=== PATIENT | female | born 1980 | race Caucasian/White ===

== ENCOUNTER 2021-11-27 14:47 | Outpatient (CLI) | payer OTHER, SELFPAY ==
--- NOTE | ~2021-11-27 | US_ITS ---
EXAMINATION: US pelvic complete w TV DATE: 11/27/2021 15:59 INDICATION: Excessive and frequent menstruation TECHNIQUE: Multiple transabdominal and endovaginal sonographic images of the pelvis were obtained. COMPARISON: None. FINDINGS: The uterus measures 9.1 x 5.2 x 6.5 cm. The endometrial complex measures 8 mm. There is a 2 .9 cm isoechoic mass adjacent to the uterine fundus which has the appearance of a pedunculated fibroi d. The right ovary is not visualized however no right adnexal abnormality is seen. The left ovary rafy sures 8.3 x 4.6 x 4.5 cm and contains two simple cysts which measure 3.9 and 3.7 cm. There is normal vascular flow in the left ovary. There is no free fluid in the pelvis. IMPRESSION: 1. No sonographic correlate for the patient's symptoms. Reviewed, dictated and finalized at location B.
== END 2021-11-27 14:48 | disposition home or self-care (01) ==
PROVIDERS: PCP Family Medicine; Visit Provider Physician Assistant
DX: N92.1 Excessive and frequent menstruation with irregular cycle (principal)
CPT/HCPCS: 76830; 76856

== ENCOUNTER 2022-01-08 07:37 | Outpatient (CLI) | payer OTHER, SELFPAY ==
--- NOTE | ~2022-01-08 | MR_ITS ---
EXAMINATION: MR lumbar spine wo con DATE: 01/08/2022 08:29 INDICATION: Low back pain TECHNIQUE: Magnetic resonance imaging (MRI) of the lumbar spine was performed without intravenous con trast. Sequences included sagittal T2-weighted FSE, sagittal T2-weighted FS FSE, sagittal T1-weighted FSE, and axial T2-weighted FSE. COMPARISON: None FINDINGS: 3 mm retrolisthesis L5 on S1. For degree lumbar dextrocurvature. Developmental L2 limbus vertebra wit h small unfused apophyseal center at the anterior aspect of the superior endplate. Minimal likely phy siologic anterior wedging at T12 and L1. Chronic T11 compression fracture with 20% anterior vertebral body height loss. There is diffuse red marrow reexpansion throughout the visualized spine. Mild disc height loss at T11-T12, L1-L2, L3-L4 and L5-S1. Moderate disc height loss at L4-L5. The conus medull rekha terminates at L1-L2. There is normal signal in the caudal spinal cord. Paravertebral soft tissue s are unremarkable. The following disc levels are specifically discussed: T12-L1: The disc does not extend beyond the endplate margin. There is mild bilateral facet joint oste oarthritis. There is no neural foraminal stenosis. There is no central canal stenosis. L1-L2: Disc is minimally bulging. There is mild bilateral facet joint osteoarthritis. There is no mirella ral foraminal stenosis. There is no central canal stenosis. L2-L3: Disc is minimally bulging. There is mild right and minimal left facet joint osteoarthritis. Th ere is no neural foraminal stenosis. There is no central canal stenosis. L3-L4: Disc is mildly bulging. There is mild bilateral facet joint osteoarthritis. There is minimal b ilateral neural foraminal stenosis. There is minimal central canal stenosis. L4-L5: Disc is mildly bulging with annular fissure. There is severe bilateral facet joint osteoarthri tis. There is mild bilateral neural foraminal stenosis. There is mild central canal stenosis. L5-S1: Disc is mildly bulging with annular fissure and small central disc extrusion with disc materia l extending 3 mm caudal to the level of the superior endplate of S1. There is moderate bilateral face t joint osteoarthritis. There is mild to moderate bilateral neural foraminal stenosis. There is minim al central canal stenosis. IMPRESSION: 1. Mild to moderate lumbar spondylosis most prominent at L4-L5. Reviewed, dictated and finalized at location A.
== END 2022-01-08 07:38 ==
PROVIDERS: PCP Family Medicine; Visit Provider Nurse Practitioner Family
DX: M54.50 Low back pain, unspecified (principal); M47.815 Spondylosis without myelopathy or radiculopathy, thoracolumbar region; M48.05 Spinal stenosis, thoracolumbar region; M47.27 Other spondylosis with radiculopathy, lumbosacral region; M48.07 Spinal stenosis, lumbosacral region
CPT/HCPCS: 72148

== ENCOUNTER → 2022-07-02 08:16 | Outpatient (CLI) | payer OTHER, SELFPAY ==
--- NOTE | ~2022-07-02 | US_ITS ---
EXAMINATION: US transvaginal DATE: 07/02/2022 08:45 INDICATION: Abnormal uterine bleeding Comparison:Ultrasound dated 11/27/2021 TECHNIQUE: Multiple transabdominal and endovaginal sonographic images of the pelvis performed. FINDINGS: The uterus measures 7.7 x 4 x 4.7 cm. The endometrial complex measures 6 mm. There are uter ine fibroids, largest on the left measuring 3.1 x 2.4 x 2 cm. There is a posterior fibroid measuring 2.1 x 1.5 x 1.9 cm The right ovary measures 3.5 x 1.8 x 2.8 cm and the left ovary is now identified. There is no free fluid in the pelvis. There are no abnormal masses seen on either side. IMPRESSION: 1. Multiple uterine fibroids, largest measuring up to 3.1 cm. Reviewed, dictated and finalized at location D. MOLDER
== END ==
PROVIDERS: PCP Family Medicine; Visit Provider Advanced Practice Midwife
DX: N93.8 Other specified abnormal uterine and vaginal bleeding (principal); D25.9 Leiomyoma of uterus, unspecified
CPT/HCPCS: 76830

== ENCOUNTER 2022-08-05 00:29 | Day surgery (SDC) | payer OTHER, SELFPAY ==
[2022-07-24 15:57] VITALS: BMI 34.0
--- NOTE | 2022-07-24 16:05 | SUR.PREOP ---
Report to the Outpatient Waiting Room, entrance under the green pavilion located off [facility], at time 0715 on date 08/05/22. Planned Procedure Time: _0915_. Time changes happen often and if your time is changed the preop area will call you the afternoon before. - You and your visitor will be asked to self-screen and do not enter if you have any COVID symptoms. - Only one visitor is requested with a max of two and NO children visitors are allowed at this time. - The patient visitor may be requested to leave or wait in car when not with patient due to distancing restrictions. - A mask is optional within the hospital at this time. Patients may have clear liquids (water, carbonated beverages, clear teas, apple juice) until 3 hours prior to surgery with a maximum of 20 ounces. - No food from midnight until time of surgery 20 OUNCES OF CLEAR LIQUID BEFORE 0615 - Infants may have breast milk until 4 hours before surgery, infant formula 6 hours prior to surgery. - Children will be allowed to drink immediately following surgery. If applicable, please bring a bottle or sippy cup to assist with drinking. Juice, water, soda, and popsicles are readily available. For infants on formula, please bring formula the day of surgery. Pacifiers are allowed. Take the following medications with a SIP of water the morning of surgery: N/A DO NOT STOP ANY OF YOUR OTHER PRESCRIPTION MEDICATIONS PRIOR TO SURGERY ?EXCEPT THE FOLLOWING Medications to discontinue per physician _HOLD MULTIVITAMIN 3 DAYS PRIOR TO PROCEDURE Date to take last dose Please no make-up, nail luxembourgish, hairspray, perfume, deodorant, or body powder the day of surgery. No jewelry (including any body piercings) or valuables the day of surgery, leave them at home. Please take a shower or bath the night before, or the morning of, surgery with an antibacterial soap. Wear comfortable, loose fitting clothing. Children are encouraged to wear pajamas. - Jewelry must be removed prior to entering the operating room. Rings and piercings that are not removed may be cut off. - The hospital will not accept responsibility for valuables. - Please leave all valuables, including medications, at home the day of surgery. If you are going home after surgery, a licensed port cdl a driver must drive you home. - NO public transportation without another adult if you receive anesthesia. - We recommend that an adult stay with you for 24 hours following discharge. - We also recommend that you do not drive, make important decision, drink alcoholic beverages, or take any drugs that were not prescribed by your health care provider for at least 24 hours after your discharge time. For Pediatric surgeries, we recommend two adults accompany the child home. Follow any additional instructions given to you from your surgeon. If you or anyone in your household have experienced Covid symptoms in the past week, please notify your surgeon or the nurse liaison at the phone number below for possible testing. Telephone instructions given to PATIENT and asked if any additional questions and then verbalized understanding. Patient advised to call surgeon office or pre surgery nurse liaison [phone] if any additional questions.
--- NOTE | 2022-08-05 07:25 | WPDHPUPDATE1 ---
History and Physical Update Update Date/Time: 08/05/22 07:25 History and Physical has been reviewed, including an updated exam of the patient. There are NO changes in the patient's condition. Risks, benefits, and alternatives have been discussed and questions answered. Patient agrees to proceed with procedure.
--- NOTE | 2022-08-05 07:25 | PM.HPGS ---
History of Present Illness History of Present Illness Consent: Risks, benefits, and alternatives have been discussed and questions answered. Patient agrees to proceed with procedure. Chief complaint: Menorrhagia Narrative: Sylwia Phan is a 42 year old female with menorrhagia. Patient with known history of fibroids and previous provider gave the patient Myfembree which she took for 3 months. She states this worked well and she had minimal to no bleeding. Patient presents for D&C hysteroscopy to see if any fibroids are submucosal and able to be removed. Patient states her cycles are otherwise irregular with prolonged spotting and bleeding several times per months. At times they are very heavy bleeding greater than a pad per hour with large multiple. Risks of surgery were reviewed with the patient including infection, bleeding, perforation and fluid imbalance. Possible pathology was also discussed. Patient reports a history of attempting hysterosalpingogram which was unsuccessful due to cervical stenosis. Therefore the patient was given Cytotec for 1 week prior to procedure. Review of Systems Review of Systems: not repeated day of surgery; patient states no changes in status [facility] Past Medical History Medical History (Updated 08/05/22 @ 07:30 by Rosa Dennis MD) Hx of abscess of breast required surgical drainage PCOS (polycystic ovarian syndrome) Surgical History Surgical History Bariatric surgery status Silvino-en-Y 2020 History of repair of hiatal hernia S/P hernia repair Family History Family History Other Family history of chronic obstructive pulmonary disease Social History Social History (Updated 11/13/21 @ 14:41 by Wanda Bowens) Social History: Smoking status: Never smoker Second hand tobacco smoke exposure: No Alcohol intake: never Substance use: never Substance use type: does not use Living arrangements: with family Occupation/Education: occupation Gender identity (if verbalized by the patient): Female Sexual Orientation (if Verbalized by the Patient): Straight or Heterosexual Meds Home Medications and Allergies Home Medications Medication Instructions Recorded Confirmed Type ferrous sulfate 325 mg (65 mg 325 mg PO DAILY 07/24/22 07/24/22 History iron) tablet multivitamin-iron (hematinic) 1 cap PO DAILY 07/24/22 07/24/22 History Allergies Allergy/AdvReac Type Severity Reaction Status Date / Time morphine AdvReac Intermediate Itching Verified 11/13/21 14:40 Sulfa (Sulfonamide AdvReac Intermediate Hives Verified 07/24/22 15:57 Antibiotics) Exam Const: General: healthy appearing and alert Orientation/consciousness: patient oriented x3 Resp: Effort & Inspection: normal respiratory effort Auscultation: clear to auscultation bilaterally Cardio: Rate: regular rate Rhythm: regular rhythm GI: GI Palp: Yes Soft to palpation, No Tenderness to palpation present (GI) and No Palpable mass present : External Female Exam: normal external appearance Speculum Exam - Vagina: normal appearance of the vagina and normal vaginal discharge Speculum Exam - Cervix: normal appearance of the cervix Bimanual exam- vagina & uterus: uterine size normal and consistency normal Bimanual Exam- Adnexa, other: normal adnexae and No adnexal tenderness Neuro: General: patient oriented x3 Assessment and Plan Assessment and plan (1) Metrorrhagia: Code(s): N92.1 - Excessive and frequent menstruation with irregular cycle Status: Acute Assessment and Plan: plan to proceed with D&C hysteroscopy (2) Fibroid: Code(s): D21.9 - Benign neoplasm of connective and other soft tissue, unspecified Status: Acute Assessment and Plan: if submucosal plan to proceed with myomectomy
[2022-08-05 07:45] VITALS: BP 111/69; PULSE 68; RESP 16; TEMP 36.1; O2SAT 98
[2022-08-05] MEDS: ACETAMINOPHEN 500 MG TABLET 1000 MG PO (07:45)
[2022-08-05] MEDS: LACTATED RINGERS 1,000 ML 30 ML IV CONT (07:45)
--- NOTE | 2022-08-05 08:07 | WPDANESEPPF ---
Anes - Initial Pre Proc Eval Procedure: Operation Date: 08/05/22 09:15 Proposed Procedures p Hysteroscopy Dilation and Curettage - Rosa Dennis MD Date/Time: 08/05/22 08:07 Surgeon: Rosa Dennis MD Pre Op Diagnosis: Menorrhagia Patient Data Age: 42 Gender: F Height: 1.73 m Weight: 101.6 kg Allergies Allergy/AdvReac Type Severity Reaction Status Date / Time morphine AdvReac Intermediate Itching Verified 08/05/22 08:04 Sulfa (Sulfonamide AdvReac Intermediate Hives Verified 08/05/22 08:04 Antibiotics) Home Medications Medication Instructions Recorded Confirmed Type ferrous sulfate 325 mg (65 mg 325 mg PO DAILY 07/24/22 08/05/22 History iron) tablet multivitamin-iron (hematinic) 1 cap PO DAILY 07/24/22 08/05/22 History Patient hx anesthesia problems: none Family hx anesthesia problems: none Results Review: All pre-operative results and documents have been reviewed as part of the pre-operative evaluation. FOR[facility]LY [facility], [facility] Past Medical History Medical History (Updated 08/05/22 @ 07:30 by Rosa Dennis MD) Hx of abscess of breast required surgical drainage PCOS (polycystic ovarian syndrome) Surgical History Surgical History Bariatric surgery status Silvino-en-Y 2020 History of repair of hiatal hernia S/P hernia repair Family History Family History Other Family history of chronic obstructive pulmonary disease Social History Social History (Updated 11/13/21 @ 14:41 by Wanda Bowens) Social History: Smoking status: Never smoker Second hand tobacco smoke exposure: No Alcohol intake: never Substance use: never Substance use type: does not use Living arrangements: with family Occupation/Education: occupation Gender identity (if verbalized by the patient): Female Sexual Orientation (if Verbalized by the Patient): Straight or Heterosexual Anes - Eval Final PreProcedure Day of Procedure 08/05/22 08:07 Patient weight: obese Heart: regular rate and rhythm Lungs: clear to auscultation Airway: Mallampati scale class II Neurological: alert and oriented Last oral intake: >/= 8 hours ASA classification: II Emergent: no Anesthetic plan: proceed Anesthesia type and monitoring: general GIVS and standard monitoring Results Review: All pre-operative results and documents have been reviewed as part of the pre-operative evaluation. Informed Consent: The patient's anesthetic plan and its attendant risks and benefits were discussed with the patient/family/POA. Questions were solicited and answers provided to the satisfaction of the patient/family/POA.
[2022-08-05] MEDS: LIDOCAINE HCL 1% LOCAL INJ 20 ML VIAL 10 ML INFILTRATE (09:16)
--- NOTE | 2022-08-05 09:21 | W.PM.PROC2 ---
Procedure Note - Detailed Date of Procedure 08/05/22 Pre-op Diagnosis Menorrhagia Post-op Diagnosis Same Procedure Performed D&C hysteroscopy Surgeon Rosa Dennis MD Anesthesia MAC and Local Findings uterus measures 9cm and is retroverted; endometrium appears grossly normal Description of Procedure The patient is taken to the operating room and placed under anesthesia in the dorsal lithotomy position. She was prepped and draped in usual sterile fashion. [place] speculum was placed in the vagina and the cervix grasped on the anterior lip with a tenaculum. The uterus is sounded at 9cm and is noted to be retroverted. The hysteroscope was placed and the above-stated findings are noted. The hysteroscope is removed and the sharp curette used to curette the endometrium until a good uterine cry is noted in all areas. All instruments are removed. Sponge, needle, and instrument counts are correct per the OR staff. The patient is awakened from anesthesia and taken to recovery in stable condition. Estimated Blood Loss 5 Drains No Packing No Pathology Yes ( Endometrial curettings) Complications No immediate complications Condition Stable Disposition PACU
[2022-08-05 09:23] VITALS: BP 83/59; PULSE 62; RESP 12; O2SAT 98
[2022-08-05 09:30] VITALS: BP 87/45; PULSE 57; RESP 13; O2SAT 97
[2022-08-05 10:00] VITALS: BP 109/72; PULSE 62; RESP 14
== END 2022-08-05 10:05 | disposition home or self-care (01) ==
PROVIDERS: PCP Family Medicine; Visit Provider Obstetrics & Gynecology Gynecology
PROC: 0U5B8ZZ Destruction of Endometrium, Via Natural or Artificial Opening Endoscopic (ICD-10-PCS; CPT 58563; principal; 2022-08-05 09:15)
DX: N92.1 Excessive and frequent menstruation with irregular cycle (principal); Z98.84 Bariatric surgery status; E66.9 Obesity, unspecified; Z68.35 Body mass index [BMI] 35.0-35.9, adult
CPT/HCPCS: 58558; 88305; A9270; J2250; J2704; J3010; J7120

== ENCOUNTER 2022-12-15 08:02 | Emergency (ER) | payer OTHER, SELFPAY ==
--- NOTE | 2022-12-15 08:09 | ED.SKABFB ---
HPI - Skin/Abscess/Foreign Bdy General Chief complaint: Skin/Abscess/Foreign Body Stated complaint: skin irritation Time Seen by Provider: 12/15/22 08:16 Source: patient and RN notes reviewed Mode of arrival: ambulatory Limitations: no limitations History of Present Illness HPI narrative: 42-year-old female presents with concern for rash. She reports the around patch of rash on abdomen another on her flank 1 on her chest and 1 developing on her buttock. She reports they have been there for about a month, she has been using antifungal cream without relief. MD complaint: rash Related Data Home Medications Medication Instructions Recorded Confirmed ferrous sulfate 325 mg (65 mg 325 mg PO DAILY 07/24/22 12/15/22 iron) tablet multivitamin-iron (hematinic) 1 cap PO DAILY 07/24/22 12/15/22 norethindrone 1 mg-ethinyl 1 tablet PO DAILY 12/15/22 12/15/22 estradiol 20 mcg (24)-iron 75 mg (4) tablet ([place] 24 Fe) Allergies Allergy/AdvReac Type Severity Reaction Status Date / Time morphine AdvReac Intermediate Itching Verified 12/15/22 08:11 Sulfa (Sulfonamide AdvReac Intermediate Hives Verified 12/15/22 08:11 Antibiotics) Review of Systems Review of Systems: CONSTITUTIONAL: Denies malaise, chills, sweats, or fever. EYES: Denies redness, or discharge. ENT: Denies rhinorrhea, congestion, swollen lips, swollen tongue CARDIOVASCULAR: Denies chest pain, palpitations, or edema. RESPIRATORY: Denies cough or dyspnea. GASTROINTESTINAL: Denies abdominal pain, nausea, vomiting SKIN: Reports scattered patches of itchy rash MUSCULOSKELETAL: Denies joint pain or myalgia. NEUROLOGIC: Denies headache. All systems reviewed & are unremarkable except as noted in HPI and below PMFSH Past Medical History Medical History (Updated 12/15/22 @ 08:25 by Mandi Romero NP) Hx of abscess of breast required surgical drainage PCOS (polycystic ovarian syndrome) Surgical History Surgical History Bariatric surgery status Silvino-en-Y 2020 History of repair of hiatal hernia S/P hernia repair Family History Family History Other Family history of chronic obstructive pulmonary disease Social History Social History (Updated 11/13/21 @ 14:41 by Wanda Bowens) Social History: Smoking status: Never smoker Second hand tobacco smoke exposure: No Alcohol intake: never Substance use: never Substance use type: does not use Living arrangements: with family Occupation/Education: occupation Gender identity (if verbalized by the patient): Female Sexual Orientation (if Verbalized by the Patient): Straight or Heterosexual Comments At time of signature, agree with nursing past medical, surgical, social and family history. There is no relevant family history pertinent to the presenting complaint Exam Narrative: GENERAL: Well-appearing, well-nourished, and in no acute distress. HEAD: Normocephalic, atraumatic. EYES: PERRLA, conjunctivae clear, and EOMI. ENT: Mucous membranes moist. NECK: Supple. No lymphadenopathy CHEST: Clear to auscultation. No respiratory distress. HEART: Regular rate and rhythm. SKIN: Warm, dry. [place] slightly raised annular patches of plaque consistent with tinea and noted to the abdomen, flank, chest NEURO: Alert and oriented x3. PSYCH: Normal mood and affect Course Course Emergency Course: Patient is aware of diagnosis, understands and agrees to treatment plan. Anticipatory guidance given. Patient agrees to follow-up as directed and is aware of reasons to seek care at the emergency department. Portions of this record may have been created with voice recognition software Level of Care: Express Care Visit Vital Signs Vital signs: Reviewed. MDM - Skin/Abscess/Foreign Bdy MDM Narrative Medical decision making narrative: Does not appear at this time to be er
[2022-12-15 08:11] VITALS: BP 116/74; PULSE 66; RESP 16; TEMP 36.7; O2SAT 99
[2022-12-15 08:12] VITALS: BP 116/74; PULSE 66; RESP 16; TEMP 36.7; O2SAT 99
== END 2022-12-15 08:34 | disposition home or self-care (01) ==
PROVIDERS: Emergency Provider Nurse Practitioner; PCP Family Medicine
DX: B35.4 Tinea corporis (principal); E28.2 Polycystic ovarian syndrome
CPT/HCPCS: 99213; G0463

== ENCOUNTER 2023-05-21 11:23 | Emergency (ER) | payer OTHER, SELFPAY ==
[2023-05-21 11:34] VITALS: BP 125/76; PULSE 67; RESP 16; TEMP 36.9; O2SAT 99
[2023-05-21 11:48] VITALS: BP 125/76; PULSE 67; RESP 16; TEMP 36.9; O2SAT 99
--- NOTE | 2023-05-21 11:53 | ED.URI ---
HPI - URI/Sore Throat General Chief Complaint: Upper Respiratory Infection Stated Complaint: chest/head congestion Time Seen by Provider: 05/21/23 11:53 Source: patient Mode of arrival: ambulatory Limitations: no limitations History of Present Illness HPI Narrative: 42-year-old female presents with nasal congestion, sore throat, fatigue For 1 week. Reports cough and chest congestion started yesterday. Taking Mucinex with no relief of symptoms. Afebrile. No chest pain or shortness breath. All systems reviewed and negative except as noted above. Related Data Home Medications Medication Instructions Recorded Confirmed ferrous sulfate 325 mg (65 mg 325 mg PO DAILY 05/21/23 05/21/23 iron) tablet Allergies Allergy/AdvReac Type Severity Reaction Status Date / Time morphine AdvReac Intermediate Itching Verified 12/15/22 08:11 Sulfa (Sulfonamide AdvReac Intermediate Hives Verified 12/15/22 08:11 Antibiotics) Review of Systems Review of Systems: CONSTITUTIONAL: Denies fever, chills, or sweats. reports fatigue. EYES: Denies visual changes, redness, or discharge. ENT: Reports rhinorrhea, congestion, sore throat. Deniesotalgia. CARDIOVASCULAR: Denies chest pain, palpitations, or edema. RESPIRATORY: reports cough denies dyspnea. GASTROINTESTINAL: Denies abdominal pain, nausea, vomiting, or diarrhea. GENITOURINARY: Denies dysuria or hematuria. SKIN: Denies rash or itching. MUSCULOSKELETAL: Denies back pain, joint pain, or myalgia. NEUROLOGIC: Denies headache, numbness, or weakness. PSYCHIATRIC: Denies anxiety or depression. All other systems reviewed are negative, except as documented in HPI. [facility]LY [facility] Past Medical History Medical History (Updated 05/21/23 @ 12:10 by Roseann Burr NP) Hx of abscess of breast required surgical drainage PCOS (polycystic ovarian syndrome) Surgical History Surgical History Bariatric surgery status Silvino-en-Y 2020 History of repair of hiatal hernia S/P hernia repair Family History Family History Other Family history of chronic obstructive pulmonary disease Social History Social History (Updated 11/13/21 @ 14:41 by Wanda Bowens) Social History: Smoking status: Never smoker Second hand tobacco smoke exposure: No Alcohol intake: never Substance use: never Substance use type: does not use Living arrangements: with family Occupation/Education: occupation Gender identity (if verbalized by the patient): Female Sexual Orientation (if Verbalized by the Patient): Straight or Heterosexual Comments At time of signature, agree with nursing past medical, surgical, social and family history. There is no relevant family history pertinent to the presenting complaint. Exam Narrative: GENERAL: This is a well-nourished, well-developed patient, in no apparent distress. HEAD: normocephalic, atraumatic. EYES: PERRL. Sclera clear/white. Vision is grossly intact. EARS: External ears normal, auditory canals clear and without drainage, TMs normal without perforation. Hearing grossly intact. NOSE: External nose normal with Nasal congestion, for erythema and swelling to bilateral nares, bilateral maxillary sinus problem tenderness on palpation. THROAT: Mucous membranes moist, Erythema with postnasal drainage NECK: Neck supple, non-tender without lymphadenopathy, masses or thyromegaly. CARDIOVASCULAR: Regular rate and rhythm without murmurs, gallops, or rubs. RESPIRATORY: Clear to auscultation. Breath sounds equal bilaterally. No wheezes, rales, or rhonchi. SKIN: warm, Dry, intact with no suspicious lesions or rash, good texture and turgor. NEURO: awake, alert, and oriented to person, place and time. There were no obvious focal neurologic abnormalities. EXTREMITIES: No joint tenderness, effusion, or edema noted. Course Course Le
== END 2023-05-21 12:15 | disposition home or self-care (01) ==
PROVIDERS: Emergency Provider Nurse Practitioner Family; PCP Family Medicine
DX: J01.90 Acute sinusitis, unspecified (principal); Z20.822 Contact with and (suspected) exposure to COVID-19; E28.2 Polycystic ovarian syndrome
CPT/HCPCS: 87081; 87426; 87804; 87880; 99213; G0463

== ENCOUNTER 2024-12-09 17:07 | Emergency (ER) | payer OTHER, SELFPAY ==
[2024-12-09 17:15] VITALS: BP 114/72; PULSE 64; RESP 20; TEMP 36.8; O2SAT 98
--- NOTE | 2024-12-09 18:00 | ED_ITS ---
HPI - Female Genitourinary General Chief complaint: Urogenital-Female Stated complaint: STD Time Seen by Provider: 12/09/24 17:08 Source: patient Mode of arrival: ambulatory Limitations: no limitations History of Present Illness HPI Narrative: Patient is a 44-year-old female that presents for STD testing. Reports that she may have been exposed to 2 weeks ago. Patient is not having any symptoms. MD elicited complaint: dysuria Related Data Home Medications ?Medication ?Instructions ?Recorded ?Confirmed ?Last Taken ?Type ferrous sulfate 325 mg (65 mg 325 mg PO DAILY 05/21/23 07/28/24 Unknown History iron) tablet mecobalamin (vitamin B12) 1,000 1,000 mcg PO DAILY 09/04/23 07/28/24 Unknown History mcg chewable tablet (B12 Active) multivitamin 1 tablet PO DAILY 09/04/23 07/28/24 Unknown History calcium 500 mg (as citrate)-vit D3 tablet PO 10/16/23 07/28/24 Unknown History 12.5 mcg (500 unit) chewable tablet cholecalciferol (vitamin D3) 50 50 mcg PO DAILY 10/16/23 07/28/24 Unknown History mcg (2,000 unit) capsule Allergies Allergy/AdvReac Type Severity Reaction Status Date / Time adhesive tape Allergy Mild Hives Verified 12/09/24 17:13 morphine AdvReac Intermediate Itching Verified 12/09/24 17:13 Sulfa (Sulfonamide AdvReac Intermediate Hives Verified 12/09/24 17:13 Antibiotics) Review of Systems Review of Systems: All systems reviewed & are unremarkable except as noted in HPI and below Constitutional: Constitutional: Denies chills, Denies fever(s), Denies headache(s), Denies malaise and Denies weakness Eyes: Eyes: Denies change in vision, Denies eye discharge and Denies irritation ENT: Denies otalgia, Denies headache(s), Denies nasal congestion, Denies nasal discharge, Denies sinus pain and Denies sore throat Cardiovascular: Cardiovascular: Denies chest pain, Denies edema, Denies palpitations and Denies dyspnea Respiratory: Respiratory: Denies cough and Denies dyspnea Gastrointestinal: Gastrointestinal: Denies abdominal pain, Denies diarrhea, Denies nausea and Denies vomiting Genitourinary: Genitourinary: Denies hematuria, Denies nocturia, Denies dysuria, Denies flank pain, Denies urinary urgency, Denies vaginal discharge and Denies vaginal pruritus Musculoskeletal: Musculoskeletal: Denies back pain and Denies numbness Integumentary/Breasts: Skin/Breast: Denies pruritus and Denies rash Neurologic: Denies headache(s), Denies numbness and Denies weakness Psychiatric: Psychiatric: Reports no additional psychiatric complaints Endocrine: Endocrine: Denies palpitations PMFSH Past Medical History Medical History Anemia PCOS (polycystic ovarian syndrome) Surgical History Surgical History Hx of abscess of breast (~2013) required surgical drainage, again in 2018 History of repair of hiatal hernia S/P hernia repair 2011,2012,2013,2017,2020 Bariatric surgery status Silvino-en-Y 2020 Family History Family History Grandparent Heart disease Hypertension Other Family history of chronic obstructive pulmonary disease Social History Social History Social History: Smoking packs per day: 1 Smoking cigarettes per day: 20.0 Years smoked: 20 Smoking pack-years: 20.00 Smoking status: Never smoker Second hand tobacco smoke exposure: No Smoking end date: 10/16/19 Alcohol intake: never Substance use: never Substance use type: does not use Do You Feel Safe in your Home?: Yes Lack of Transportation: No Lack of Food: Never True Current Housing: I Have Housing Concerned About Future Housing: No Difficulty Paying Gas/Electric Bills: No Difficulty Paying for Meds: No Currently Unemployed: No Education: Trade/Vocational Certificate Difficulty w/ Childcare or Family Care: No Living arrangements: with family Occupation/Education: occupation Gender identity (if verbalized by the patient): Female Sexual Orientation (if Verbalized by the Patient): Straight or Heterosexual Spiritual care concerns: No Agree to blood products: Yes Comments At time of signature, agree with nursing past medical, surgical, social and family history. There is no relevant family history pertinent to the presenting complaint. Exam Const: General: cooperative, healthy appearing, comfortable, no acute distress and well nourished Nutritional Appearance: well nourished Orientation/consciousness: patient oriented x3 HENMT: Head: normocephalic and atraumatic Ears: external ears normal Face/Nose/Sinus: Normal external nose present, Normal nares present and normal facial exam Face and sinus: normal facial exam Eyes: General: appearance normal, both eyes and all related structures Pupils: Equal, round and reactive pupils present EOM: EOMs intact bilaterally Neck: Neck: normal visual inspection, full ROM and supple Chest: Chest palpation & inspection: normal inspection of the chest Resp: Effort & Inspection: normal respiratory effort and able to speak in complete sentences Cardio: Rate: regular rate Rhythm: regular rhythm GI: Inspection: normal to inspection GI Palp: No abdominal tenderness and Yes Soft to palpation : General: Yes no CVA tenderness Back/Spine/Pelvis: Back: no CVA tenderness Skin: General skin exam: normal color and no rashes or lesions noted Neuro: General: patient oriented x3 and moves all extremities Cranial nerves: Yes Equal, round and reactive pupils present Extrem: General: normal to inspection and full ROM Psych: Appearance: grossly normal and well kempt Course Course Emergency Course: Patient is aware of diagnosis, understands and agrees to treatment plan. Anticipatory guidance given. Patient agrees to follow-up as directed and is aware of reasons to seek care at the emergency department. Portions of this record may have been created with voice recognition software Level of Care: Express Care Visit Vital Signs Vital signs: Vital Signs Temperature 36.8 C 12/09/24 17:15 Pulse Rate 64 12/09/24 17:15 Respiratory Rate 20 12/09/24 17:15 Blood Pressure 114/72 12/09/24 17:15 Pulse Oximetry 98 12/09/24 17:15 Oxygen Delivery Room Air 12/09/24 17:15 Temperature 36.8 C 12/09/24 17:15 Pulse Rate 64 12/09/24 17:15 Respiratory Rate 20 12/09/24 17:15 Blood Pressure 114/72 12/09/24 17:15 Pulse Oximetry 98 12/09/24 17:15 Oxygen Delivery Room Air 12/09/24 17:15 Reviewed MDM - Female Genitourinary MDM Narrative Medical decision making narrative: Will not empirically treat based on having no symptoms. Urine sent. Abstinence and safe sex precautions were provided and the patient demonstrated understanding. Pt well hydrated appearing, in no respiratory distress, hemodynamically stable. Recommend supportive care. The patient is stable at time of discharge the clinical impression was discussed and the patient was given the opportunity to ask questions, which were addressed as completely as possible given the information available at present. Anticipatory guidance and return to care precautions were discussed and the importance of primary care follow-up was stressed and encouraged. The patient voiced understanding of the plan, indications to return, and the need for follow-up. Exam findings show no acute concerns or changes Patient is appropriate for outpatient treatment and follow-up. Differential Diagnosis Differential diagnosis: Likely urinary tract infection, bacterial vaginosis, trichomoniasis, cervicitis, vaginitis, cystitis and other (STI) Medical Records Attestation: I reviewed the patient's medical records. Discharge Plan Discharge Clinical Impression: Possible exposure to STD Patient Disposition: Home Condition: Stable Instructions: Sexually Transmitted Diseases (ED) Additional Instructions: You have been tested for potential gonorrhea, chlamydia, and trichomoniasis today. You will receive a phone call in 1-2 days with any positive results of today's testing. It is very important that you avoid unprotected intercourse for 7 days and until your partner(s) have been treated. Please encourage your partner(s) to seek testing and treatment. When you have been exposed to sexually transmitted infections, it is important that you seek comprehensive testing, since we do not provide testing for all sexually transmitted infections. Some infections can have no symptoms, but cause serious health problems. Contact your health care provider or report to the emergency department if: ? You have genital swelling or pain, or unusual bleeding. ? You have joint pain, rash, swollen lymph nodes or night sweats. ? You are severe abdominal pain. ? You have a fever. ? Symptoms do not go away or they get worse even after treatment. ? You have bleeding or pain during sex. Patient Language: Kiswahili Prescriptions: No Action ferrous sulfate 325 mg (65 mg iron) Tablet 325 mg PO DAILY cholecalciferol (vitamin D3) 50 mcg (2,000 unit) capsule 50 mcg PO DAILY calcium citrate-vitamin D3 500 mg-12.5 mcg (500 unit) tablet,chewable PO multivitamin Tablet 1 tablet PO DAILY mecobalamin (vitamin B12) [B12 Active] 1,000 mcg tablet,chewable 1,000 mcg PO DAILY sumatriptan succinate 50 mg tablet See Rx Instructions PO .COMPLEX Qty: 30 2RF Rx Instructions: take 1 tab at onset of headache; if no relief may repeat 1 tab after at least 2 hrs; max = 4 tabs/24 hr PO hydroxyzine HCl 25 mg tablet 25 mg PO BID PRN (Reason: anxiety) Qty: 30 0RF topiramate 100 mg capsule,extended release 24hr 100 mg PO DAILY Qty: 90 1RF varenicline tartrate [Chantix Continuing Month Box] 1 mg tablet 1 mg PO BID Qty: 56 0RF Follow-up/Referrals: Yajaira Infante APRN [Primary Care Provider] - 3 Days Time of Disposition: 18:08
[2024-12-09 20:24] LABS: Trichomonas Vag PCR NOT DETECTED (NOT DETECTE)
== END 2024-12-09 18:15 | disposition home or self-care (01) ==
PROVIDERS: Emergency Provider Nurse Practitioner Family; PCP Nurse Practitioner Family
DX: Z11.3 Encounter for screening for infections with a predominantly sexual mode of transmission (principal); Z87.891 Personal history of nicotine dependence; E28.2 Polycystic ovarian syndrome; D64.9 Anemia, unspecified
CPT/HCPCS: 87491; 87591; 87661; 99213; G0463